=== PATIENT | female | born 1980 | race Caucasian/White ===

== ENCOUNTER 2020-07-12 16:29 | Emergency (ER) | payer SELFPAY ==
[~2020-07-12] VITALS: Ht 157.5 cm; Wt 70.3 kg
[2020-07-12 16:50] VITALS: Ht 157.5 cm; Wt 70.3 kg
[2020-07-12] MEDS ORDERED: CAMBIA50 M1 PO (23:22)
[2020-07-12] MEDS ORDERED: ONDANSETRON4 M3 PO (23:22)
[2020-07-12] MEDS ORDERED: KEF500 PO (23:22)
[2020-07-13 10:30] VITALS: BP 98/58
== END 2020-07-13 10:30 | disposition home or self-care (01) ==
LOC: ED 16:29
DX: S00.81XA Abrasion of other part of head, initial encounter (principal); V49.9XXA Car occupant (driver) (passenger) injured in unspecified traffic accident, initial encounter; Y93.89 Activity, other specified; Y92.89 Other specified places as the place of occurrence of the external cause; Y99.8 Other external cause status
CPT/HCPCS: 90715